=== PATIENT | female | born 1930 | race Caucasian/White ===

== ENCOUNTER 2016-12-24 11:46 | Inpatient (IN) | payer MEDICARE ==
--- NOTE | ~2016-12-24 | DS ---
Discharge Summary [facility] [address] [place]. [address] NAME: JC DALTON : 31 STATUS : DIS IN PAT#: [id number] AGE: 86 ADM/REG DATE : 12/25/16 MR#: [id number] REPORT SERV DATE: 12/31/16 DICTATED BY: NACHO LOPES DATE: 12/28/16 REPORT STATUS : Draft TRANSCRIBED BY: MODL DATE: 12/28/16 ADMISSION DATE: 12/25/2016 DISCHARGE DATE: 12/28/2016 DISCHARGE DIAGNOSES: 1. Profound weakness, thought secondary to multifactorial:. a. Possible tick-borne disease. b. Essentially negative neuromuscular workup, but does have aldolase and acetylcholine receptor antibodies still pending and tick borne results still pending at time of discharge. Has had MRI and EEG workup negative. Additional component of caregiver fatigue also noted and organophosphate exposure with pesticide use. 2. Abdominal bruit, negative abdominal ultrasound. 3. Osteoarthritis. 4. Old silicone leak from breast implants. 5. Raynaud with prior negative surgeon's workup. 6. 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 CONSULTATIONS: Neurology. DISCHARGE MEDICATIONS: Docusate 100 mg one tablet p.o. daily, doxycycline 100 mg one tablet p.o. b.i.d. 12 days #24, melatonin home dose 10 mg at bedtime as needed, fish oil 1000 mg p.o. b.i.d., home vitamin D 10,000 units weekly, to resume Crestor when reassessed by PCP, Vision jele-nho-ejkoozw capsules, Vital Reds guyu-ntc-dekrnjk supplement, calcium and vitamin D supplements over the counter. Pending labs at time of discharge, that will need to be followed up with PCP. Aldolase and acetylcholine receptor binding antibody, Keo spotted fever and Lyme disease, all of which were sent out labs and still pending at time of discharge. Current labs that are performed during this hospital stay. UA: Negative leukocyte esterase and nitrites. Ammonia 15, BNP 38.1, procalcitonin negative, Legionella nondetected, strep screen negative, flu screen negative. CBC was grossly within normal limits. Sedimentation rate within normal limits and repeated within normal limits. Vitamin D and 25 hydroxybutyrate with vitamin D level was 42, considered optimal. Cortisol level 24.7, consider within normal limits. Duplex, aorta: Minimal atherosclerotic features. No evidence of aneurysmal changes suggested. CPK was 59. Sedimentation rate 18. EEG that was performed, normal waking drowsing EEG. Consider normal MRI atrophy. No acute infarct or bleed. Subtle changes developmental venous anomaly within associated gliosis is identified in the right frontal region. No acute infarct or bleed is seen to explain the generalized weakness. HOSPITAL COURSE: Please see H and P for complete details of HPI. Briefly, Ms. 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 Of note four days prior to this admission was significantly noted to have per concerns with PCP, family of this new onset of weakness. Discharge Summary [address] [address] NAME: JC DALTON : 31 STATUS : DIS IN PAT#: [id number] AGE: 86 ADM/REG DATE : 12/25/16 MR#: [id number] REPORT SERV DATE: 12/31/16 DICTATED BY: NCAHO LOPES DATE: 12/28/16 REPORT STATUS : Draft TRANSCRIBED BY: VICENTE DATE: 12/28/16 The patient per history did have insect exposure as sister who has already been checked for tick borne diseases had 13 tick bites. The patient denies any, however, did have mosquito bites, but was empirically started on doxycycline as Keo spotted fever and Lyme disease were being ordered. As these are send outs, these labs are still pending and empiric treatment was started. Family members have been counseled to followup with PCP as they have already done additional workup for MRI, neuromuscular components, PMR, and polymyositis workup by neurologist with neurologic status being worked up and has been essentially negative. The patient has had discussion with Neurology, significant component of caregiver fatigue does appear to have caused additional decompensation. The patient was advised about getting additional assistance. Social work assistance has been given to the patient and contacts for additional assistance for getting additional help. Electrolytes still remained within normal limits. On day of discharge, the patient was continued to be monitored as the patient did have episodes of notable fatigue, weakness, which has slow, but improved progression. PT and OT evaluation did recommend home discharge. On day of discharge, the patient felt significantly improved, was able to be walking without assistance up and down halls, appears although not 100% back to her baseline, is on that improved trend. The patient is eager to return back to home. Acute workup has been negative. The patient did have ultrasound of abdomen for abdominal bruit, which was negative. The patient does have history of silicone leak. This is chronic and we will have pre followup with Dr. Julian. The patient does have history of Raynaud and neuropathy. Has had negative Sjogren's workup in past, but does have organophosphate exposure. The patient was advised by Neurology and this senior copywriter for continuing contact precautions. The patient does wear notable boot protection when she uses her pesticides, but no additional gross electrolyte abnormality has been found. The patient will also need very close followup with PCP under the excellent care of Dr. Lane. Follow up with Neurology as an outpatient and Dr. Julian. DICTATED BY: MD CHRIS Somers/VICENTE Nacho Lopes MD / [id number] CC: MD Porter Somers M.D.
--- NOTE | ~2016-12-24 | HP ---
History And Physical [facility] [address] [facility] [place]. [address] NAME: JC SERVIN : 31 STATUS : ADM IN [facility]#: [id number] AGE: 86 ADM/REG DATE : 12/24/16 MR#: [id number] REPORT SERV DATE: 12/25/16 DICTATED BY: NACHO LOPES DATE: 12/24/16 REPORT STATUS : Draft TRANSCRIBED BY: MODAlexys DATE: 12/24/16 DATE OF ADMISSION: 12/24/2016 Direct admission from clinic. CHIEF COMPLAINT: Profound weakness x2 weeks progressively over the last four days with anorexia x4 days. HISTORY OF PRESENT ILLNESS: The patient is an 86-year-old female, fairly healthy with mild history of arthritis, has also had history of breast augmentation with subsequent silicone rupture requiring a clean out with residual still remaining and has not followed up with Dr. Guerrier, plastic surgeon which to complete further clean out, who presents to PCP after having profound weakness. Typically, the patient is fairly active going as far as doing her own pressure washing at home on a daily basis, able to take care of her ADLs and also her who is fairly debilitated from diabetic complications. However, the patient noticed that she has been getting progressively weak over the last two weeks with notable generalized weakness over the last four days and increased somnolence and decreased p.o. intake. When the sister who came to [facility] has noticed this. She encouraged the patient to go to emergency room and PCP. Emergency room workup with CMP, coags, CT head, chest x- ray was essentially unremarkable. No current cause of issues. However, the patient still has not rebounded back to her baseline as the patient is even able to get up from bed. The patient is on minimal medications, but does include rosuvastatin which she was reports being started few months ago. The patient does not have any true focal pain, but does have generalized weakness. Does have mild medial bilateral ankle discomfort on pressure. No nausea, vomiting, diarrhea. Has been working outside, no recent tick bites. Did have a few mosquito bites. Symptoms are worsened with standing up, but improved by lying down. REVIEW OF SYSTEMS: Her additional 10-point review of systems negative for that noted in the HPI. PAST MEDICAL HISTORY: Osteoarthritis. SURGICAL HISTORY: Right shoulder planned surgery, breast augmentation with subsequent silicone leak resulting clean out and replacement residual silicone still noted and was planned to have followup with Dr. Guerrier's plastic surgery, but has missed appointment. Additional surgeries appendix, hysterectomy. SOCIAL HISTORY: No smoking. Does have mild alcohol and no illicits. Lives with , who is disabled from diabetes. FAMILY HISTORY: No heart disease or diabetes or no similar symptoms to this current issue. Additionally, last travel history travel to [place] over nine years ago, but no recent travels. PHYSICAL EXAMINATION: History And Physical [address] [place]. [address] NAME: JC SERVIN : 31 STATUS : ADM IN [facility]#: [id number] AGE: 86 ADM/REG DATE : 12/24/16 MR#: [id number] REPORT SERV DATE: 12/25/16 DICTATED BY: NACHO LOPES DATE: 12/24/16 REPORT STATUS : Draft TRANSCRIBED BY: VICENTE DATE: 12/24/16 VITAL SIGNS: Blood pressure 177/74, O2 sat is 99%, temperature 97.5, pulse 75, respirations 16, O2 sats 98%. GENERAL: No acute distress. Appears younger than stated age. Well developed, well nourished. EYES: No scleral icterus. EOMI, but does have photosensitivity. ENT: Nares patent. Tongue midline. Does have decreased hearing acuity. Wearing hearing aid. NECK: Supple without JVD. CHEST: Equal chest expansion. RESPIRATORY: Clear to auscultation. No wheezes, rales. CARDIAC: No rubs or gallops. Mild faint 1/6 systolic murmur. No pedal edema. GI: Soft, nontender, nondistended. Bowel sounds positive. : Deferred. MUSCULOSKELETAL: Moves all extremities, although notably weak not only distal but also proximal muscles. Does have pain with pressure on medial ankles bilaterally. This is reproducible. Does not have any muscle atrophy. NEURO: Alert and oriented. Moves all extremities, although approximately 3+/5 diffusely. Sensation is still grossly intact. Normal vocal dictation. Symmetrical smile, normal vocal leonard. PSYCH: Appropriate mood and affect. LABS: Still currently pending. Recent CT head negative. ASSESSMENT AND PLAN: 1. Profound weakness. 2. Anorexia. 3. Osteoarthritis. 4. Foreign body in chest wall cavity from silicone exposure. PLAN: 1. For profound weakness. Differential includes PMR, rhabdomyolysis, adrenal insufficiency, additionally could be viral etiology due to from recent mosquito bites and outdoor exposure. Denies any tick bites and no new rashes. We will check CPK, ESR, CBC, CMP, cortisol, hold statin at this time. IV fluids as the patient has reported decreased intake. 2. Anorexia. Check abdominal ultrasound with reported abdominal bruit, although slightly faint at this time, but will do have no smoking history, so we will check abdominal ultrasound. 3. Osteoarthritis, p.r.n.'s. 4. Silicone exposure from prior implant leak and was to follow Dr. Guerrier's plastic surgery for further clean out. We will obtain ultrasound of the breast to see if any additional information her irritation could be additional agent. DISPOSITION: Pending. Findings from above. Thank you Dr. Lane for allowing us to assist in the care of this patient. History And Physical [address] [address] NAME: JC SERVIN : 31 STATUS : ADM IN [facility]#: [id number] AGE: 86 ADM/REG DATE : 12/24/16 MR#: [id number] REPORT SERV DATE: 12/25/16 DICTATED BY: NACHO LOPES DATE: 12/24/16 REPORT STATUS : Draft TRANSCRIBED BY: MODAlexys DATE: 12/24/16 DDN/VICENTE Nacho Lopes MD / [id number] CC: MD Porter Somers M.D.
--- NOTE | ~2016-12-24 | EEG ---
Electroencephalogram [facility] [id number] [place]. [address] NAME: JC SERVIN : 31 STATUS : ADM IN PAT#: [id number] AGE: 86 ADM/REG DATE : 12/25/16 MR#: [id number] REPORT SERV DATE: 12/26/16 DICTATED BY: TATO CONN DATE: 12/26/16 REPORT STATUS : Draft TRANSCRIBED BY: MODAlexys DATE: 12/26/16 EEG NUMBER: [id number]. INTERPRETING PHYSICIAN: Tato Conn MD. AGE: 86. REASON FOR EEG: Episodes of hypersomnolence and fatigue, rule out seizures. 23 surface electrodes, 10-20 international placement was used. Photic stimulation was performed. Video monitoring was utilized. The background activity consisted of very well organized moderate voltage, 10 cycles per second, located in the posterior head regions. This alpha range activity attenuated well with the eye opening maneuvers. Photic stimulation did not produce a significant driving response and no additional abnormalities were observed during photic stimulation. No asymmetry of cerebral activity was noted during this study. No paroxysmal epileptiform features were present. The patient's human resources operations manager showed sinus rhythm, rate of approximately 74 beats per minute. During brief periods of drowsiness, slight increase of slower frequencies was observed. IMPRESSION: THIS IS A NORMAL AWAKE AND DROWSY EEG. CLINICAL CORRELATION IS RECOMMENDED. CAROL/VICENTE Tato Conn MD / [id number] CC: MD Porter Somers M.D.
--- NOTE | ~2016-12-24 | CN ---
Consultation Report [facility] [address] [place]. [address] NAME: JC SERVIN : 31 STATUS : ADM Marquez PAT#: [id number] AGE: 86 ADM/REG DATE : 12/24/16 MR#: [id number] REPORT SERV DATE: 12/25/16 DICTATED BY: TATO CONN DATE: 12/25/16 REPORT STATUS : Draft TRANSCRIBED BY: VICENTE DATE: 12/25/16 NEUROLOGICAL CONSULTATION-EVALUATION. DATE OF CONSULTATION: 12/25/2016 HISTORY OF PRESENT ILLNESS: This is an 86-year-old female, with known history of degenerative arthritis and a past history of multiple revisions of breast implants since age 31 who apparently was recently told that she has a silicone leak into her right axilla from the leaking old breast implants. The patient in the last week has been extremely fatigued and described having weakness in all her muscles. The patient stated that she has been extremely busy in the last several months, taking care of her sick who has severe diabetes mellitus with multiple complications. The patient lives on [address] [place] land which demands a great deal of care. The patient apparently does all the chores around the house and her property herself. She lives with two dogs and 5 cats. Recently, her sister who came out of town noted that the patient has been extremely fatigued. 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 Occasionally, she takes a nap in the middle of the day when not interrupted by her sick . PAST MEDICAL HISTORY: The patient has been healthy and extremely active throughout all her life. She had travel outside of the country several times, however, none in the last 9 years. The patient worked in [employer], [place], and other places, traveling with a [employer] company. 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 The patient denied having previous history of muscle weakness. There is no history of stroke or TIA. No history of significant injuries recently. Four years ago, the patient was diagnosed with mild peripheral neuropathy which was affecting her distal toes. The patient initially noticed numbness involving her toes. At that time, she was referred by her primary doctor for what appears to be neurological testing. The patient does not have any history of diabetes mellitus, and no explanation was given for the nature of her neuropathy. REVIEW OF SYSTEMS: The patient denied difficulty with her speech, chewing, swallowing. Denied fluctuations in her symptoms. Denied shortness of breath on exertion. Denied chest pain. The patient has not had any recent viral illnesses. The patient does have exposure to outdoor insects and has used insecticide, herbicides, and pesticides routinely throughout the years. No others exposure to toxins or chemicals was reported. The rest of 14 point of review of system was negative. No recent changes of weight. The patient does have a past history of LASIK surgery, has had increased light sensitivity recently. FAMILY HISTORY: Significant for history of the patient's mother suffering with Alzheimer disease for "15 years." She apparently of pneumonia. The patient's father had history Consultation Report [address] [place]. 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 The patient is one of seven siblings, two of whom had heart attacks. The patient has a younger sister, who is currently visiting with her. No history of muscle disease or muscle weakness present in the patient's family. The patient has several children who all live outside of this area. One of the daughters comes relatively regularly to help the patient on the weekends. SOCIAL HISTORY: The patient does not have any history of smoking or alcohol use. She lives with her of 25 years who is disabled and has severe diabetes. ALLERGIES: NO KNOWN ALLERGIES. WHEN THE PATIENT WAS QUESTIONED ABOUT EXPOSURE TO TICK BITES, THE PATIENT STATED THAT SHE NORMALLY PERFORMS ALL THE CHORES, DRESSING APPROPRIATELY WITH HEAVY BOOTS, AND BEING COVERED, USING HANDS AND LONG SLEEVES. PHYSICAL EXAMINATION: GENERAL: The patient was alert and cooperative, pleasant, was extremely hard of hearing. Appeared to look much younger than her stated age. VITAL SIGNS: Show blood pressure of 130/60, pulse was 65, respirations 16, and temperature 98.6. HEAD AND NECK: Showed head to be normocephalic. There was no evidence of trauma. Auscultation of the neck showed no evidence of bruits. EYE EXAM: Sclerae were not icteric. Conjunctivae were pink. ENT EXAM: Showed no evidence of significant abnormalities. Tongue was midline. No atrophy or fibrillations were noted. Palate elevated symmetrically. Neck was supple. There is no Kernig or Brudzinski. No JVD. No thyromegaly detected. CHEST: Symmetrical. LUNGS: Clear. HEART: Auscultation of the heart regular S1 and S2. No S3, S4, gallops were noted. The patient had silicone implants which appeared to be regular in shape. I did not detect any lumps or enlargement on palpation of the axilla right or left. ABDOMEN: Soft, nontender. There was no organomegaly. EXTREMITIES: Show no clubbing or cyanosis. There was no peripheral edema. Peripheral pulses were normal. SKIN: Clear. No rashes. No ecchymosis. No petechia or other lesions noted. VITAL SIGNS: The patient's weight was 57.4 kilos. She is approximately 5 feet 10 inches. NEUROLOGICAL EXAMINATION: Mental status exam: The patient was alert, oriented to self, time, and place. Her speech was fluent. There is no evidence of aphasia or dysarthria. Thought content and mood were appropriate. No evidence of recent or distant memory deficit was noted on testing. The patient appeared to be aware of her situation and had good insight and good judgment. Cranial nerve examination 2 through 12: Visual tavarez on confrontation were intact. Consultation Report [address] [place]. [address] NAME: JC SERVIN : 31 STATUS : ADM Marquez PAT#: [id number] AGE: 86 ADM/REG DATE : 12/24/16 MR#: [id number] REPORT SERV DATE: 12/25/16 DICTATED BY: TATO CONN DATE: 12/25/16 REPORT STATUS : Draft TRANSCRIBED BY: VICENTE DATE: 12/25/16 Funduscopic exam showed no evidence of papilledema, hemorrhages, exudates. Pupils were 3 mm, equal, round, and reactive to light and accommodation. Extraocular movements were full. There was no nystagmus. No dysconjugate gaze was noted. There was no limitation of upward or downward gaze. Facial sensation, muscles of mastication and muscles of facial expression show no evidence of asymmetry or weakness. Hearing was decreased diffusely bilaterally air conduction, bone conduction was normal. Lower cranial nerves are intact. Tongue was midline. No atrophy or fibrillations were noted. Palate elevated symmetrically. Sternocleidomastoid and trapezius muscles were normal. Shoulder shrug was normal. Motor exam: Muscle bulk and tone was normal. No fasciculations were observed. No abnormal movements were noted. Strength was 5/5 throughout. No significant fatigability was noted on testing of proximal distal muscles. Deep tender reflexes were 1+ over 2 throughout except for ankle jerks which were absent. Babinski signs were not elicitable. Sensory Exam: To pinprick and light touch. Vibration showed stocking distribution of decreased sensation distally in both legs up to the 10 cm below the knees. Cerebellar exam: Vbcsut-oh-hydo, ngic-tq-lqsi, rapid alternating movements show no evidence of asymmetry. No ataxia or dysdiadochokinesis noted. Gait is per physical therapy evaluation. The patient had no difficulty with her gait. LABORATORY STUDIES: WBC count 4.5, hemoglobin 12.4, hematocrit 37.1, platelet count 181,000. Magnesium 2, phosphorus 3.2. Calcium 8.1, glucose 92. BUN 8, creatinine 0.43. Glomerular filtration 107. Sodium 142, potassium 3.3, chloride 108. Vitamin D 42 with normal between 30 and 80. Influenza screen A and B negative. Streptococcal pneumococcal antigen negative. Legionella antigen in the urine not detected. Ammonia level 15, B-natriuretic 38.1. Drug screen negative. Urinalysis is negative. IMPRESSION: Recent onset of generalized weakness. The differential diagnoses include possible myositis. The patient had been started recently on statin medication which was discontinued on the admission to the hospital. However, I evaluated the patient's history and her neurological exam. It is difficult to place patient's symptoms to any significant serious entity. I doubt if the patient has polymyositis, however, we will do appropriate testing to rule it out. No evidence of progressive weakness to suggest polyradicular neuropathy. 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 I would recommend to obtain laboratory studies, which should include sed rate, C-reactive protein, CPK, aldolase. In addition, I would recommend to obtain serum vitamin B12 and folate level and vitamin D levels. The patient does not describe fluctuating weakness. It and appears to be progressive most likely secondary to recent increase amount of demands that were placed on her as a result of her 's illness. The patient does not have any help performing her chores around the house which appeared to be physically strenuous including planting trees, taking care of her garden 2.5 acre lawn which patient mows regularly, painting decks and houses. I doubt presence of myasthenia gravis although laboratory studies will be done to obtain that. Outpatient EMG Consultation Report [facility] [id number] [facility] [place]. [address] NAME: JC SERVIN : 31 STATUS : ADM Marquez PAT#: [id number] AGE: 86 ADM/REG DATE : 12/24/16 MR#: [id number] REPORT SERV DATE: 12/25/16 DICTATED BY: TATO CONN DATE: 12/25/16 REPORT STATUS : Draft TRANSCRIBED BY: VICENTE DATE: 12/25/16 and nerve conduction velocity study may be helpful to rule out any other myopathic processes. Laboratory studies to rule out Lyme disease or other tick-borne diseases has been ordered by the primary physician. Thank you for allowing us to participate in this patient's care. CAROL/VICENTE Tato Conn MD / [id number] CC: Karlo Orozco MD [facility]
[2016-12-24] MEDS ORDERED: Vitamin D 5 (12:51)
[2016-12-24] MEDS ORDERED: MELATONIN10 M2 PO (12:51)
[2016-12-24] MEDS ORDERED: CRESTOR20 MG PO (12:52)
[2016-12-24] MEDS ORDERED: IBU600 PO (12:52)
[2016-12-24] MEDS ORDERED: FISH-EPA1000 MG PO (12:52)
[2016-12-24] MEDS ORDERED: [UNRECOGNIZED DRUG - OTHER] PO (12:54)
[2016-12-24] MEDS ORDERED: VITAL REDS PO (12:55)
[2016-12-24] MEDS ORDERED: CALTRA600D PO (12:56)
[2016-12-24 17:52] LABS: ASCORBIC ACID (UR NOT ORDER) NEG (NEG); BILIRUBIN, URINE NEGATIVE (NEG); KETONE, URINE 20 MG/DL (NEG); LEUKOCYTE ESTERASE(NOT OR NEG (NEG); WBC (NOT ORDERED) (RFLEX) < 1 (0-5)
[2016-12-24 17:57] LABS: AMPHETAMINES (NOT ORD) NEG (NEG); BARBITURATES (NOT ORDERED NEG (NEG); BENZODIAZEPINES (NOT ORD) NEG (NEG); CANNABINOIDS (THC) NEG (NEG); COCAINE (NOT ORDERED) NEG (NEG); OPIATES NEG (NEG); PHENCYCLIDINE(PCP) NEG (NEG); TRICYCLICS NEG (NEG)
[2016-12-24 18:03] LABS: BASOPHILS 0.9 %; BASOPHILS ABSOLUTE 0.04 10/3/uL (0.0-0.16); EOSINOPHILS 2.2 %; HEMATOCRIT 37.1 % (36.0-48.0); HEMOGLOBIN 12.4 g/dL (12.0-16.0); LYMPHOCYTES 46.5 %; LYMPHOCYTES ABSOLUTE 2.08 10/3/uL (0.67-4.30); MANUAL DIFF NO %; MEAN CORPUS HGB CONC 33.4 g/dL (32.0-36.0); MEAN CORPUSCULAR VOLUME 86.9 fL (80-100); MONOCYTES 10.3 %; MONOCYTES ABSOLUTE 0.46 10/3/uL (0.21-1.20); NEUTROPHILS 40.1 %; NEUTROPHILS ABSOLUTE 1.79 10/3/uL (2.02-8.40); PLATELET COUNT 181 10/3/uL (150-400); RED CELL COUNT 4.27 10/6/uL (4.0-5.6); WHITE BLOOD CELLS 4.5 10/3/uL (4.5-10.5)
[2016-12-24 18:31] LABS: B NATRIURETIC PEPTIDE (BNP) 38.1 PG/ML (< 100.0)
[2016-12-24 18:41] LABS: PROCALCITONIN <0.05 ng/mL (<0.5)
[2016-12-24 18:54] LABS: ALBUMIN 3.3 G/DL (3.5-5.0); ALKALINE PHOSPHATASE 49 U/L (45-117); BUN (BLOOD UREA NITROGEN) 8 MG/DL (6-23); C-REACTIVE PROTEIN 10.3 MG/L (<8.0); CALCIUM, SERUM 8.1 MG/DL (8.5-10.4); CHLORIDE, SERUM 108 MMOL/L (96-112); CO2 (CARBON DIOXIDE) 29 MMOL/L (24-34); CPK 77 U/L (0-200); CREATININE 0.43 MG/DL (0.55-1.02); FERRITIN 74 NG/ML (8-252); FOLATE 34.7 NG/ML (>5.2); FREE T4 1.39 NG/DL (0.76-1.46); GFR AFRICAN AMERICAN 107 ML/MIN (>=60); GFR NON AFRICAN AMERICAN 93 ML/MIN (>=60); GLOBULIN 3.4 G/DL (2.5-4.1); GLUCOSE, SERUM 92 MG/DL (60-99); IRON BINDING CAPACITY 271 MCG/DL (225-410); IRON, SERUM 35 MCG/DL (35-150); PHOSPHORUS, SERUM 3.2 MG/DL (2.5-4.5); POTASSIUM, SERUM 3.3 MMOL/L (3.5-5.3); SGOT(AST) 36 U/L (5-40); SGPT(ALT) 27 U/L (5-65); SODIUM, SERUM 142 MMOL/L (135-148); TOTAL BILIRUBIN 0.3 MG/DL (0-1.2); TOTAL PROTEIN 6.7 G/DL (6.0-8.5)
[2016-12-24 19:36] LABS: INFLUENZA A SCREEN NEGATIVE (NEGATIVE); INFLUENZA B SCREEN NEGATIVE (NEGATIVE)
[2016-12-24 19:46] LABS: SED RATE 20 MM/HR (0-20)
[2016-12-25 07:59] LABS: BUN (BLOOD UREA NITROGEN) 9 MG/DL (6-23); CALCIUM, SERUM 8.3 MG/DL (8.5-10.4); CHLORIDE, SERUM 111 MMOL/L (96-112); CO2 (CARBON DIOXIDE) 27 MMOL/L (24-34); CREATININE 0.51 MG/DL (0.55-1.02); GFR AFRICAN AMERICAN 102 ML/MIN (>=60); GFR NON AFRICAN AMERICAN 88 ML/MIN (>=60); GLUCOSE, SERUM 85 MG/DL (60-99); POTASSIUM, SERUM 3.6 MMOL/L (3.5-5.3); SODIUM, SERUM 142 MMOL/L (135-148)
[2016-12-26 06:56] LABS: BASOPHILS 1.6 %; BASOPHILS ABSOLUTE 0.08 10/3/uL (0.0-0.16); EOSINOPHILS ABSOLUTE 0.25 10/3/uL (0.0-0.53); HEMATOCRIT 36.4 % (36.0-48.0); HEMOGLOBIN 11.9 g/dL (12.0-16.0); LYMPHOCYTES 52.2 %; MEAN CORPUS HGB CONC 32.7 g/dL (32.0-36.0); MEAN CORPUSCULAR HEMOGLOB 29.1 pg (26.0-34.0); MEAN PLATELET VOLUME 10.1 fL (9.2-13.0); MONOCYTES 8.8 %; MONOCYTES ABSOLUTE 0.44 10/3/uL (0.21-1.20); NEUTROPHILS 32.4 %; NEUTROPHILS ABSOLUTE 1.61 10/3/uL (2.02-8.40); PLATELET COUNT 170 10/3/uL (150-400); RBC DISTRIBUTION WIDTH 12.9 % (12.0-16.0); RED CELL COUNT 4.09 10/6/uL (4.0-5.6)
[2016-12-26 06:57] LABS: MANUAL DIFF NO %
[2016-12-26 07:12] LABS: BUN (BLOOD UREA NITROGEN) 9 MG/DL (6-23); CALCIUM, SERUM 8.4 MG/DL (8.5-10.4); CHLORIDE, SERUM 112 MMOL/L (96-112); CO2 (CARBON DIOXIDE) 26 MMOL/L (24-34); CREATININE 0.42 MG/DL (0.55-1.02); GFR AFRICAN AMERICAN 108 ML/MIN (>=60); GFR NON AFRICAN AMERICAN 93 ML/MIN (>=60); GLUCOSE, SERUM 80 MG/DL (60-99); POTASSIUM, SERUM 3.9 MMOL/L (3.5-5.3); SODIUM, SERUM 143 MMOL/L (135-148)
[2016-12-28] MEDS ORDERED: DOCUSOFT S100 MG PO (10:04)
[2016-12-28] MEDS ORDERED: MONODOX100 MG PO (10:04)
[2016-12-30 08:01] LABS: ALDOLASE 2.9 U/L (1.2-7.6)
[2016-12-30 13:22] LABS: LYME BY PCR Not Detected (NOTDET)
[2016-12-31 07:33] LABS: SPECIMEN TYPE (SERUM OR CSF..) SERUM
[2016-12-31 13:14] LABS: ROCKY MTN SPOTTED FEVER AB IGG <1:64 (LTD64); ROCKY MTN SPOTTED FEVER AB IGM <1:64 (LTD64)
[2017-01-01 04:13] LABS: ACETYLCHOLINE RECEPT BLOCK AB <15 % (<15); ACH RECEPTOR BINDING AB <0.30 nmol/L (<0.31)
== END 2016-12-28 11:32 | disposition home or self-care (01) | DRG 948 ==
LOC: 4SO 11:46
PROVIDERS: Student in an Organized Health Care Education/Training Program
DX: R53.1 Weakness (principal); A93.8 Other specified arthropod-borne viral fevers; G62.9 Polyneuropathy, unspecified; R63.0 Anorexia; M19.90 Unspecified osteoarthritis, unspecified site; R53.83 Other fatigue; M60.9 Myositis, unspecified; T85.8 Other specified complications of internal prosthetic devices, implants and grafts, not elsewhere classified; Y81.2 Prosthetic and other implants, materials and accessory general- and plastic-surgery devices associated with adverse incidents; Y83.4 Other reconstructive surgery as the cause of abnormal reaction of the patient, or of later complication, without mention of misadventure at the time of the procedure; Z68.21 Body mass index [BMI] 21.0-21.9, adult; I73.00 Raynaud's syndrome without gangrene; R09.89 Other specified symptoms and signs involving the circulatory and respiratory systems
CPT/HCPCS: 70450; 70551; 71010; 80048; 80053; 80305; 81001; 82085; 82140; 82150; 82306; 82533; 82550; 82607; 82728; 82746; 82962; 83519; 83540; 83550; 83690; 83735; 83880; 84100; 84145; 84439; 84443; 84484; 85025; 85610; 85652; 85730; 86140; 86757; 86757-59; 87449; 87476; 87804; 93005; 93978; 95816; 96372; 97110-GP; 97116-GP; 97161-GP; 99285; A9270-GY; G8978-CJ-GP; G8979-CH-GP; J2930